=== PATIENT | male | born 1970 | race Caucasian/White ===

== ENCOUNTER 2019-10-26 14:22 | Emergency (ER) | payer MEDICAID ==
[~2019-10-26] VITALS: Ht 182.9 cm; Wt 81.7 kg
[2019-10-26] MEDS ORDERED: DILANTIN30 MG PO (14:37)
[2019-10-26] MEDS ORDERED: NOVOLOG MI100 UNIT/M SUBQ (14:38)
[2019-10-26 15:21] LABS: ABSOLUTE BASOPHILS 0.1 thou/uL (0.0-0.2); ABSOLUTE EOSINOPHILS 0.2 thou/uL (0.0-0.7); ABSOLUTE LYMPHOCYTES 1.9 thou/uL (0.8-5.3); ABSOLUTE MONOCYTES 0.3 thou/uL (0.0-1.2); ABSOLUTE NEUTROPHILS 8.5 thou/uL (1.6-8.1); BASOPHILS 1.3 %; EOSINOPHILS 1.7 %; HEMATOCRIT 46.5 % (42.0-52.0); HEMOGLOBIN 15.1 gm/dL (14.0-18.0); MCH 30.5 pg (26.0-34.0); MCHC 32.4 g/dL (28.0-37.0); MCV 94.1 fL (80.0-100.0); MONOCYTES 2.7 %; MPV 7.8 fl. (7.2-11.1); NUCLEATED RBCS 0 /100WBC; PLATELET COUNT* 485 thou/uL (150-400); POLYS 77.3 %; RBC 4.94 mil/uL (4.50-6.00)
[2019-10-26 15:28] LABS: BE -5.1 mmol/L (-2 to +3); PCO2 VENOUS 38.7 mmHg (41.0-51.0); PO2 VENOUS 45.1 mmHg (35.0-45.0)
[2019-10-26 15:35] LABS: CALCIUM 9.3 mg/dL (8.5-10.1); CREATININE 1.1 mg/dL (0.6-1.3); POTASSIUM 4.8 mmol/L (3.5-5.1)
[2019-10-26 15:37] LABS: ALBUMIN 3.8 g/dL (3.4-5.0); TOTAL BILIRUBIN 0.5 mg/dL (<0.1-1.0); TOTAL PROTEIN 7.6 g/dL (6.4-8.2)
[2019-10-26] MEDS ORDERED: ONDANSETRON HCL4 M2 PO (15:38)
[2019-10-26 16:48] VITALS: BP 134/86
== END 2019-10-26 16:49 ==
LOC: M.ERS 14:22
PROVIDERS: Family Medicine
DX: E10.65 Type 1 diabetes mellitus with hyperglycemia (principal)